=== PATIENT | male | born 1965 | race Caucasian/White ===

== ENCOUNTER → 2016-08-13 | Outpatient (CLI) | payer OTHER ==
--- NOTE | 2016-08-13 14:11 | NM ---
EXAMINATION: Nuclear medicine myocardial perfusion study with exercise stress test. HISTORY: Chest pain. PROCEDURE: Patient exercised according to Stephen protocol for 9 minutes and 16 seconds and achieved maximal hear t rate of 157 beats per minute. Adequate exercise. Following intravenous administration of 9.6 and 31.0 mCi of technetium 99m sestamibi, stress and r est SPECT images including gating imaging was performed. FINDINGS: Stress and rest myocardial SPECT images demonstrates uniform tracer uptake throughout the left ventr icular myocardium. Review of gated images demonstrates normal wall motion, contractility and wall thickening. The left ventricular ejection fraction is 68 %. The left ventricular chamber size is normal. IMPRESSION: 1. No evidence of myocardial ischemia. 2. Normal ventricular chamber size and function with ejection fraction of 68 %.
--- NOTE | 2016-08-18 14:28 | PCM.PRNOTE ---
- Free Text/Narrative Note: Cardiolite exercise stress test Resting blood pressure 120/78, pulse 78 Patient exercised per Stephen protocol 9 minutes and 16 seconds and achieved a maximum heart rate 157 beats per minute which was 93% of age-predicted maximum heart rate. Mets: 10.1 double product 03222 Resting EKG revealed normal sinus rhythm With exertion, no significant ST-T changes were noted. Test stopped at target heart rate.. No complaints of chest pain during exercise or recovery with an unremarkable recovery phase Impression: #1. Negative stress test for ischemic ST-T changes #2. Fair exercise tolerance #3. Cardiolite portion of test pending
== END | disposition home or self-care (01) ==
LOC: MW.NM 06:36
PROVIDERS: ATTEND Nurse Practitioner Adult Health
DX: R07.9 Chest pain, unspecified (principal); R07.89 Other chest pain
CPT/HCPCS: 78452; 93017; A9500

== ENCOUNTER 2017-03-17 09:32 | Day surgery (SDC) | payer OTHER ==
[~2017-03-17 09:32] MED LIST: Lactated Ringers 1,000 ML IV SCH; Lidocaine 2% 5 ML SDV ONE; Propofol 200 MG/20 ML SDV ONE; fentaNYL 100 MCG/2 ML SDV ONE
--- NOTE | 2017-03-17 10:16 | PCM.PREANE ---
Preanesthetic Assessment - Anesthesia/Transfusion/Family Hx Anesthesia History: Prior Anesthesia Without Reaction Family History of Anesthesia Reaction: No Transfusion History: No Prior Transfusion(s) Intubation History: Unknown - Review of Systems General: No Symptoms Pulmonary: No Symptoms Cardiovascular: No Symptoms Gastrointestinal: Hematochezia Neurological: No Symptoms Other: Reports: None - Physical Assessment O2 Sat by Pulse Oximetry: 95 Respiratory Rate: 16 Vital Signs: Last Vital Signs Temp 36.4 C 03/17/17 09:59 Pulse 94 03/17/17 09:59 Resp 16 03/17/17 09:59 BP 101/68 03/17/17 09:59 Pulse Ox 95 03/17/17 09:59 Height: 1.73 m Weight: 88.451 kg ASA Class: 2 Mental Status: Alert & Oriented x3 Airway Class: Mallampati = 2 Dentition: Reports: Normal Dentition Thyro-Mental Finger Breadths: 3 Mouth Opening Finger Breadths: 2 ROM/Head Extension: Full Lungs: Clear to Auscultation, Normal Respiratory Effort Cardiovascular: Regular Rate, Regular Rhythm - Allergies Allergies/Adverse Reactions: Allergies Allergy/AdvReac Type Severity Reaction Status Date / Time No Known Allergies Allergy Verified 03/12/17 12:06 - Blood Blood Available: No - Anesthesia Plan Pre-Op Medication Ordered: None - Acknowledgements Anesthesia Type Planned: MAC Pt an Appropriate Candidate for the Planned Anesthesia: Yes Alternatives and Risks of Anesthesia Discussed w Pt/Guardian: Yes Pt/Guardian Understands and Agrees with Anesthesia Plan: Yes PreAnesthesia Questionnaire Cardiovascular History: Reports: Hypertension - Past Surgical History Head Surgeries/Procedures: Reports: None Musculoskeletal Surgical History: Reports: Arthroscopic Knee Other Musculoskeletal Surgeries/Procedures:: knee arthroscopy x3, (rt. x2; lt. x1) - SUBSTANCE USE Smoking Status *Q: Never Smoker Recreational Drug Use History: No - HOME MEDS Home Medications: Home Meds Lisinopril 10 mg PO DAILY 03/12/17 [History] Lisinopril/Hydrochlorothiazide [Lisinopril-Hctz 20-25 mg Tab] 1 tab PO DAILY [History] - CURRENT (IN HOUSE) MEDS Current Meds: Current Medications Lactated Ringer's (Ringers, Lactated) 1,000 mls @ 125 mls/hr IV ASDIRECTED [facility] Last Admin: 03/17/17 10:00 Dose: 125 mls/hr Discontinued Medications Fentanyl (Sublimaze) Confirm Administered Dose 100 mcg .ROUTE .STK-MED ONE Stop: 03/17/17 07:29 Lidocaine (Xylocaine-Mpf 2%) Confirm Administered Dose 5 ml .ROUTE .STK-MED ONE Stop: 03/17/17 07:29 Propofol (Diprivan 20 Ml) Confirm Administered Dose 400 mg .ROUTE .STK-MED ONE Stop: 03/17/17 07:29
[2017-03-17] MEDS ORDERED: fentaNYL 100 MCG/2 ML SDV ONE (11:58)
--- NOTE | 2017-03-17 12:16 | PCM.OPNOTE ---
- General Post-Op/Procedure Note Date of Surgery/Procedure: 03/17/17 Operative Procedure(s): colonoscopy Findings: see dict [id number] Pre Op Diagnosis: BRBPR Post-Op Diagnosis: hemorrhoid Anesthesia Technique: Moderate Sedation Primary Surgeon: Eusebio Arguello Complications: None Condition: Good
--- NOTE | 2017-03-17 12:39 | PCM.POSTAN ---
POST ANESTHESIA ASSESSMENT - MENTAL STATUS Mental Status: Alert, Oriented - RESPIRATORY Respiratory Status: Respiratory Rate WNL, Airway Patent, O2 Saturation Stable - CARDIOVASCULAR CV Status: Pulse Rate WNL, Blood Pressure Stable - GASTROINTESTINAL GI Status: No Symptoms - POST OP HYDRATION Hydration Status: Adequate & Stable
--- NOTE | 2017-03-17 12:39 | PCM48HPAN ---
Post Anesthesia Note - EVALUATION WITHIN 48HRS OF ANESTHETIC Vital Signs in Normal Range: Yes Patient Participated in Evaluation: Yes Respiratory Function Stable: Yes Airway Patent: Yes Cardiovascular Function Stable: Yes Hydration Status Stable: Yes Pain Control Satisfactory: Yes Nausea and Vomiting Control Satisfactory: Yes Mental Status Recovered: Yes
--- NOTE | 2017-03-17 12:47 | OR ---
SURGEON: Eusebio Arguello MD DATE OF PROCEDURE: 03/17/2017 PREOPERATIVE DIAGNOSIS: Bright red blood per rectum. POSTOPERATIVE DIAGNOSIS: Hemorrhoids. PROCEDURE PERFORMED: Colonoscopy. FINDINGS: 1. The patient is easily sedated with BE[employer]ING INSPECTOR and Diprivan. The patient is soundly snoring. 2. Bowel prep is average to good. Very little liquid stool. No semi-formed stool. 3. The patient's colon rather straight forward. Cecum indicated by ileocecal fold, one-to-one indentation, and light immittance. An appendiceal orifice and mucosa examined. Upon scope pulling out, the patient does not have diverticulosis, mass, growth, inflammation, stricture, ulceration, bleeding, AV malformation, none of those and no polyps, no diverticulosis. The patient has moderate internal hemorrhoids and moderate external hemorrhoids. The patient would benefit from a repeat colonoscopy in 10 years from today or if clinically indicated otherwise. PROCEDURE IN DETAIL: The patient was taken to the endoscopy room. A time out was called, patient identified, and procedure identified. Diprivan was then administrated. The patient went from awake to sleep, hearing doctor talking or door closing is normal. Perineum inspection and digital examination were then performed. A well-lubricated colonoscope was gently inserted through the rectum, advanced past the rectosigmoid junction, the descending colon, splenic flexure, transverse colon, hepatic flexure, ascending colon, arrived to the cecum. Cecum was identified as dictated in the finding. Then the scope was carefully withdrawn while attention was paid to the mucosal surface for any abnormality. Air will be sucked out during the scope withdrawal. At the rectum, retroflexed to examine any rectal diseases, fistula or hemorrhoids. Patient tolerated procedure well. There were no intraoperative complications, and Dr. Arguello was present throughout the whole procedure. WILLIAM / TONNY /[id number]
== END 2017-03-17 12:58 | disposition home or self-care (01) ==
LOC: MW.SDS 09:32
PROVIDERS: ATTEND Surgery
DX: K64.8 Other hemorrhoids (principal); K64.4 Residual hemorrhoidal skin tags; I10 Essential (primary) hypertension; Z79.899 Other long term (current) drug therapy
CPT/HCPCS: 45378; J3010; J7120; 00810; J2704